=== PATIENT | female | born 1950 | race Caucasian/White ===

== ENCOUNTER 2017-07-25 09:04 | Day surgery (SDC) | payer OTHER ==
[2017-07-25] MEDS ORDERED: LR 1,000 ML IV ONE (09:27)
[2017-07-25] MEDS ORDERED: BUPIVACAINE 0.25% 30 ML SDV ONE (10:21)
--- NOTE | 2017-07-25 10:56 | PDANEPAE ---
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 - Chronic Pain History Chronic Pain: No ANE Review of Systems Review of Systems: - Exercise capacity Exercise capacity: >=4 METS ANE Patient History - Allergies Allergies/Adverse Reactions: acetaminophen [From Tylenol] Allergy (Verified 07/25/17 09:59) nausea adhesive Allergy (Verified 07/25/17 09:59) - Home Medications Home Medications: Fluticasone Nasal 50 mcg NASAL PRN PRN 07/25/17 [Last Taken 07/24/17] Levothyroxine 75 mcg PO DAILY 07/25/17 [Last Taken 07/25/17] Metoprolol Tartrate 25 mg PO BID 07/25/17 [Last Taken 07/25/17] Omeprazole 20 mg PO DAILY 07/25/17 [Last Taken 07/25/17] Xanax 0.5 MG (*) 0.5 mg PO PRN PRN 07/25/17 [Last Taken 07/24/17] Zolpidem Tartrate 5 mg PO HS 07/25/17 [Last Taken 07/24/17] - NPO status NPO Status: no food or drink >8 hours NPO Since - Liquids (Date): 07/24/17 NPO Since - Liquids (Time): 05:00 NPO Since - Solids (Date): 07/24/17 NPO Since - Solids (Time): 20:30 - Anes Hx Anes Hx: no prior problems - Smoking Hx Smoking Status: Never smoked - Alcohol Use Alcohol Use: Sober - Family Anes Hx Family Anes Hx: none ANE Labs/Vital Signs - Vital Signs Vital Signs: reviewed preoperatively; see RN documention for details Height: 157.48 cm Weight: 81.647 kg ANE Physical Exam - Airway Neck exam: FROM Mallampati Score: Class 2 Mouth exam: normal dental/mouth exam - Pulmonary Pulmonary: no respiratory distress, clear to auscultation - Cardiovascular Cardiovascular: regular rate and rhythym, no murmur, rub, or gallop - ASA Status ASA Status: III ANE Anesthesia Plan Anesthesia Plan: general endotracheal anesthesia, GA w LMA
[2017-07-25] MEDS ORDERED: MIDAZOLAM 2 MG/2 ML VIAL IVP ONE (10:57)
[2017-07-25] MEDS ORDERED: fentaNYL 100 MCG/2 ML INJ ONE ×2 (11:04→13:05)
[2017-07-25] MEDS ORDERED: PROPOFOL 200 MG/20 ML VIAL ONE (11:04)
[2017-07-25] MEDS ORDERED: LIDOCAINE 2% 100 MG/5 ML SYR ONE (11:05)
--- NOTE | 2017-07-25 11:05 | PDHPUP ---
History & Physical Update H&P update statement: This history and physical update is based on an assessment of the patient which was completed after admission or registration (within 24 hours), but prior to the surgery/procedure. H&P update: H&P reviewed & patient examined, no change in patient's condition since H&P completed
[2017-07-25] MEDS ORDERED: ceFAZolin 2 GM/DEXTROSE 100 ML IV ONE (11:15)
--- NOTE | 2017-07-25 12:37 | POSTOPPROG ---
Post Op Note Date of Operation: 07/25/17 Surgeon: Radha Cardona Anesthesiologist: dali Anesthesia: GET(General Endotracheal) Pre-op Diagnosis: L breast cancer Post-op Diagnosis: same Indication: 67 yo with left breast cancer Procedure: lumpectomy with sln Findings: neg sln Inf/Abcess present in the surg proc area at time of surgery?: No EBL: Minimal Specimen(s): lumpectomy, additional margins and sln
--- NOTE | 2017-07-25 12:50 | POSTANESTH ---
Post Anesthetic Evaluation Cardiovascular Status: Normal, Stable, Similar to Pre-Op Cond Respiratory Status: Normal, Stable, Similar to Pre-op Cond. Level of Consciousness/Mental Status: Can Participate in Eval, Alert and Oriented Pain Control: Adequate, Prn Tx Ordered Nausea/Vomiting Control: Adequate, Prn Tx Ordered Complications Possibly Related to Anesthesia: None Noted
--- NOTE | 2017-07-25 13:00 | GOP ---
[f rep st] OPERATIVE REPORT DATE OF OPERATION: 07/25/2017 SURGEON: Radha Cardona MD ANESTHESIA: General. ANESTHESIOLOGIST: Bao Murrell MD PREOPERATIVE DIAGNOSIS: Left breast invasive cancer. POSTOPERATIVE DIAGNOSIS: Left breast invasive cancer. PROCEDURE PERFORMED: Left breast lumpectomy with left sentinel lymph node. FINDINGS: Hickman lymph node negative. SPECIMENS: Left breast green anterior, red superior, yellow medial, blue inferior, orange lateral, b lack posterior with additional margins. Left sentinel lymph node. ESTIMATED BLOOD LOSS: 10 cc. INDICATIONS: The patient is a 67-year-old woman with a palpable breast mass, biopsy-proven invasive cancer. DESCRIPTION OF PROCEDURE: The patient was brought into the operating room, placed supine on the tabl e and general anesthesia was administered. Her left breast and axilla were prepped and draped in the usual sterile fashion. I infiltrated all sites with 0.5% Marcaine prior to making incisions. I mad e an incision over the mass, I created superior and inferior skin flaps. I dissected down beyond the level of the mass, I inked it green anterior, red superior, yellow medial, blue inferior, orange lat eral, black posterior. Hemostasis was achieved. I obtained an additional superior margin inked red, medial margin inked yellow, inferior margin inked blue, lateral margin inked orange, posterior rita n inked black. Clips were placed in the cavity. I made an incision beneath the hair-bearing portion on her left axilla. I used the gamma probe to identify her sentinel lymph node. This required a lo t of dissection, as her sentinel lymph node was extremely hot, over 9000, and it was extremely small in size. This was submitted to Pathology for frozen. It returned negative. Hemostasis achieved in the cavity. I closed the deep layer of the breast with 3-0 Vicryl, I closed skin on both incisions w ith 3-0 Vicryl, followed by 4-0 Monocryl. Dressings were applied. They were silicone-based which we re patch tested prior to the operating room. She was awakened in the operating room, extubated, dumont sferred to PACU in stable condition. /[id number]/MODL
[2017-07-25] MEDS ORDERED: fentaNYL 100 MCG/2 ML INJ IVP ONE (14:00)
[2017-07-25] MEDS ORDERED: oxyCODONE IR 5 MG TAB PO PRN (14:24)
[2017-07-25] MEDS ORDERED: fentaNYL 100 MCG/2 ML INJ IVP PRN (14:24)
[2017-07-25] MEDS ORDERED: ONDANSETRON 4 MG/2 ML VIAL IVP PRN (14:24)
[2017-07-25] MEDS ORDERED: NALOXONE HCL 0.4 MG/ML INJ IVP PRN (14:24)
[2017-07-25 14:48] VITALS: BP 117/90
== END 2017-07-25 14:56 | disposition home or self-care (01) ==
LOC: FSGY 09:04
PROVIDERS: ATTEND Surgery
PROC: 07B60ZX Excision of Left Axillary Lymphatic, Open Approach, Diagnostic (ICD-10-PCS; principal; 2017-07-25 11:15)
PROC: 0HBU0ZZ Excision of Left Breast, Open Approach (ICD-10-PCS; principal; 2017-07-25 11:15)
PROC: 3E0W3KZ Introduction of Other Diagnostic Substance into Lymphatics, Percutaneous Approach (ICD-10-PCS; 2017-07-25 11:15)
DX: C50.812 Malignant neoplasm of overlapping sites of left female breast (principal); Z17.0 Estrogen receptor positive status [ER+]; F41.8 Other specified anxiety disorders; E03.9 Hypothyroidism, unspecified; F10.11 Alcohol abuse, in remission; K70.30 Alcoholic cirrhosis of liver without ascites; E66.9 Obesity, unspecified; Z68.34 Body mass index [BMI] 34.0-34.9, adult
CPT/HCPCS: 19302; 78195; A9520; J0690; J2001; J2250; J2704; J3010